=== PATIENT | female | born 1990 | race Caucasian/White ===

== ENCOUNTER 2025-02-25 15:08 | Emergency (ER) | payer OTHER ==
[2025-02-25 15:14] VITALS: BP 120/80; PULSE 72; RESP 20; TEMP 99.3; BMI 34.3
[2025-02-25] MEDS ORDERED: IBUPROFEN 600 MG TABLET (FP) PO ONE (15:51)
[2025-02-25] MEDS ORDERED: FAMOTIDINE 20 MG TABLET ONE (15:52)
[2025-02-25] MEDS: IBUPROFEN 600 MG TABLET (FP) PO ONE (15:53)
[2025-02-25] MEDS: FAMOTIDINE 20 MG TABLET PO ONE (15:55)
[2025-02-25 18:32] LABS: HIV INTERPRETATION NEGATIVE (NEGATIVE)
== END 2025-02-25 16:42 | disposition home or self-care (01) ==
LOC: JERFT 15:08
DX: R22.0 Localized swelling, mass and lump, head (principal); K05.6 Periodontal disease, unspecified
CPT/HCPCS: 36415; 87389; 99283-25